=== PATIENT | female | born 1990 | race Caucasian/White ===

== ENCOUNTER 2016-08-26 20:51 | Emergency (ER) | payer SELFPAY ==
[~2016-08-26] VITALS: Ht 152.4 cm; Wt 61.2 kg
[~2016-08-26 20:51] MED LIST: ALPR1TAB7 PO
[2016-08-26 20:55] VITALS: BP 121/75
[2016-08-26 21:24] LABS: Basophils # (auto) 0.1 uL; Basophils % (auto) 0.6 % (0.0-2.0); Eosinophils # (auto) 0.1 uL; Eosinophils % (auto) 0.6 % (0.0-7.0); Hematocrit 38.4 % (36.0-46.0); Lymphocytes # (auto) 1.2 uL; Lymphocytes % (auto) 13.3 % (10.0-50.0); Mean Corpuscular Hemoglobin 29.5 pg (28.0-32.0); Mean Corpuscular Hgb Conc. 33.9 g/dL (32.0-36.0); Mean Platelet Volume 9.4 fL (7.4-10.4); Monocytes # (auto) 0.5 uL; Monocytes % (auto) 5.2 % (0.0-12.0); Neutrophils # (auto) 7.3 uL; Neutrophils % (auto) 80.3 % (37.0-80.0); Platelet Count (auto) 203 10^3/uL (140-450); Red Cell Distribution Width 13.7 % (11.6-16.0); White Blood Cell 9.1 10^3/uL (4.4-10.8)
[2016-08-26 21:42] LABS: Albumin 3.9 g/dL (3.4-5.0); Anion Gap 9 (5-15); BUN/Creatinine Ratio 5.3; Blood Urea Nitrogen 4 mg/dL (7-18); Calcium 8.8 mg/dL (8.5-10.1); Carbon Dioxide 26 mmol/L (21-32); Chloride 105 mmol/L (98-107); GFR African American 118 mL/min; GFR Non-African American 98 mL/min; Glucose 107 mg/dL (74-106); Potassium 3.7 mmol/L (3.5-5.1); Sodium 140 mmol/L (136-145)
[2016-08-26 21:43] LABS: INR 1.01 (0.9-1.15); Partial Thromboplastin Time 28.9 sec (22.64-33.71); Prothrombin Time 10.4 sec (9.37-12.3)
[2016-08-26 21:58] LABS: B-Type Natriuretic Peptide 8.09 pg/mL (0-100)
[2016-08-26 22:09] LABS: Alkaline Phosphatase 78 U/L (45-117); Aspartate Aminotransferase 11 U/L (15-37); Bilirubin, Total 0.4 mg/dL (0.2-1.0)
== END 2016-08-27 02:28 | disposition left against medical advice (07) ==
LOC: ER 20:59
DX: R07.9 Chest pain, unspecified (principal); R05 Cough; Z53.21 Procedure and treatment not carried out due to patient leaving prior to being seen by health care provider
CPT/HCPCS: 36415; 71010; 80053; 83735; 83880; 84484; 85025; 85610; 85730; 93005

== ENCOUNTER 2017-06-27 05:31 | Emergency (ER) | payer SELFPAY ==
[~2017-06-27] VITALS: Ht 154.9 cm; Wt 68.0 kg
[2017-06-27] MEDS ORDERED: ACETAMINOPHEN 500 MG TAB PO ONE ×2 (05:37→05:45)
[2017-06-27 05:43] VITALS: BP 115/77
== END 2017-06-27 06:20 | disposition left against medical advice (07) ==
LOC: ER 05:32
DX: R50.9 Fever, unspecified (principal); R05 Cough; Z53.21 Procedure and treatment not carried out due to patient leaving prior to being seen by health care provider

== ENCOUNTER 2017-11-18 19:54 | Emergency (ER) | payer SELFPAY ==
[~2017-11-18] VITALS: Ht 152.4 cm; Wt 65.8 kg
[2017-11-18 21:42] VITALS: BP 134/81
== END 2017-11-18 22:39 | disposition home or self-care (01) ==
LOC: ER 19:54
DX: S90.31XA Contusion of right foot, initial encounter (principal); L03.031 Cellulitis of right toe; Z88.0 Allergy status to penicillin; X58.XXXA Exposure to other specified factors, initial encounter; Y93.89 Activity, other specified; Y99.8 Other external cause status; Y92.89 Other specified places as the place of occurrence of the external cause
CPT/HCPCS: 29515; 73630; 81025

== ENCOUNTER 2017-12-06 22:51 | Emergency (ER) | payer SELFPAY ==
[~2017-12-06] VITALS: Ht 162.6 cm; Wt 65.8 kg
[2017-12-06 23:15] VITALS: BP 138/93
[2017-12-07] MEDS ORDERED: cefTRIAXone SOD 1,000 MG VL IM ONE (02:15)
[2017-12-07] MEDS ORDERED: LIDOCAINE 1% HCL (LOCAL ANESTH.) INJ 20ML MDV ONE (02:23)
== END 2017-12-07 03:09 | disposition home or self-care (01) ==
LOC: ER 22:51
DX: S90.414A Abrasion, right lesser toe(s), initial encounter (principal); Z88.0 Allergy status to penicillin; X58.XXXA Exposure to other specified factors, initial encounter; Y93.89 Activity, other specified; Y99.8 Other external cause status; Y92.89 Other specified places as the place of occurrence of the external cause
CPT/HCPCS: 73630; 96372; 99284; J0696; J2001

== ENCOUNTER 2018-12-23 10:15 | Emergency (ER) | payer SELFPAY ==
[~2018-12-23] VITALS: Ht 154.9 cm; Wt 69.4 kg
[2018-12-23 10:22] VITALS: BP 117/82
== END 2018-12-23 11:47 | disposition home or self-care (01) ==
LOC: ER 10:18
DX: F41.9 Anxiety disorder, unspecified (principal); F17.210 Nicotine dependence, cigarettes, uncomplicated; Z76.0 Encounter for issue of repeat prescription

== ENCOUNTER 2019-02-15 21:07 | Emergency (ER) | payer SELFPAY ==
[~2019-02-15] VITALS: Ht 154.9 cm; Wt 68.0 kg
[2019-02-15 21:22] VITALS: BP 138/96
== END 2019-02-15 22:16 | disposition home or self-care (01) ==
LOC: ER 21:09
DX: F41.0 Panic disorder [episodic paroxysmal anxiety] (principal); F17.210 Nicotine dependence, cigarettes, uncomplicated; Z88.0 Allergy status to penicillin; Z76.0 Encounter for issue of repeat prescription

== ENCOUNTER 2019-04-02 23:16 | Emergency (ER) | payer SELFPAY ==
[~2019-04-02] VITALS: Ht 154.9 cm; Wt 65.8 kg
[2019-04-03] MEDS ORDERED: ACETAMINOPHEN/CODEINE#3 (300/30mg) TAB PO ONE (01:30)
[2019-04-03] MEDS ORDERED: cefTRIAXone SOD 1,000 MG VL IM ONE (01:30)
[2019-04-03] MEDS ORDERED: DexAMETHasone SOD PHOS 10MG/1ML VIAL INJ IM ONE (01:30)
[2019-04-03 01:47] VITALS: BP 124/92
== END 2019-04-03 02:18 | disposition home or self-care (01) ==
LOC: ER 23:24
DX: J40 Bronchitis, not specified as acute or chronic (principal); M94.0 Chondrocostal junction syndrome [Tietze]; H69.83 Other specified disorders of Eustachian tube, bilateral
CPT/HCPCS: 71101; 96372; 99283; J0696; J1100

== ENCOUNTER 2019-08-01 21:03 | Emergency (ER) | payer SELFPAY ==
[~2019-08-01] VITALS: Ht 162.6 cm; Wt 61.2 kg
[2019-08-02 02:02] VITALS: BP 119/71
== END 2019-08-02 02:11 | disposition home or self-care (01) ==
LOC: ER 21:04
DX: S93.401A Sprain of unspecified ligament of right ankle, initial encounter (principal); Z88.0 Allergy status to penicillin; Z88.8 Allergy status to other drugs, medicaments and biological substances; W19.XXXA Unspecified fall, initial encounter; Y93.89 Activity, other specified; Y99.8 Other external cause status; Y92.89 Other specified places as the place of occurrence of the external cause
CPT/HCPCS: 73610

== ENCOUNTER 2019-11-28 21:01 | Emergency (ER) | payer SELFPAY ==
[~2019-11-28] VITALS: Ht 154.9 cm; Wt 65.8 kg
[2019-11-28 21:58] VITALS: BP 123/83
[2019-11-28 22:08] LABS: Basophils # (auto) 0 10 ^3/uL (0-0.2); Basophils % (auto) 0.6 % (0.0-2.0); Eosinophils # (auto) 0.1 10 ^3/uL (0-0.8); Eosinophils % (auto) 1.7 % (0.0-7.0); Hematocrit 36.6 % (36.0-46.0); Hemoglobin 12.5 g/dL (12.2-16.2); Lymphocytes # (auto) 2.1 10 ^3/uL (0.4-5.4); Mean Corpuscular Hemoglobin 29.8 pg (28.0-32.0); Mean Corpuscular Hgb Conc. 34.2 g/dL (32.0-36.0); Mean Corpuscular Volume 87.3 fL (80.0-100.0); Monocytes # (auto) 0.4 10 ^3/uL (0-1.3); Monocytes % (auto) 6.4 % (0.0-12.0); Neutrophils # (auto) 4.2 10 ^3/uL (1.6-8.6); Neutrophils % (auto) 60.3 % (37.0-80.0); Nucleated Red Blood Cells % 0.1 %; Platelet Count (auto) 202 10^3/uL (140-450); Red Blood Cells 4.19 10^6/uL (4.0-5.20); Red Cell Distribution Width 13.1 % (11.8-14.3); White Blood Cell 6.9 10^3/uL (4.4-10.8)
[2019-11-28] MEDS ORDERED: KETOROLAC TROMETH 60MG/2ML VIAL IM ONE (22:15)
[2019-11-28 22:27] LABS: Calcium 8.5 mg/dL (8.5-10.1); Potassium 3.6 mmol/L (3.5-5.1)
[2019-11-28 22:30] LABS: Urine Bacteria NONE SEEN /hpf (None Seen); Urine Blood 2+ /uL (Negative); Urine Mucus FEW (None Seen); Urine WBC 2 /hpf (0 - 5)
[2019-11-28 22:31] LABS: Albumin 3.5 g/dL (3.4-5.0); BUN/Creatinine Ratio 15.2
[2019-11-28 22:33] LABS: Bilirubin, Total 0.4 mg/dL (0.2-1.0); Total Protein 7.3 g/dL (6.4-8.2)
[2019-11-28 22:40] LABS: Alcohol, Urine < 3.0 mg/dL (0-10); Amphetamine Screen, Urine NEGATIVE (NEGATIVE); Barbiturate Scree,Urine NEGATIVE (NEGATIVE); Benzodiazephine Screen, Urine NEGATIVE (NEGATIVE); Cannabinoid Screen, Urine NEGATIVE (NEGATIVE); Cocaine Screen, Urine NEGATIVE (NEGATIVE); Opiate Scree,Urine NEGATIVE (NEGATIVE); Phencyclidine Screen, Urine NEGATIVE (NEGATIVE)
[2019-11-28] MEDS ORDERED: methylPREDNISolone SOD SUCC 125 MG/2 ML VL IM ONE (22:45)
== END 2019-11-28 23:19 | disposition home or self-care (01) ==
LOC: ER 21:01
DX: M26.622 Arthralgia of left temporomandibular joint (principal); H92.02 Otalgia, left ear; N39.0 Urinary tract infection, site not specified; F17.210 Nicotine dependence, cigarettes, uncomplicated
CPT/HCPCS: 36415; 70450; 70486; 80053; 80307; 81001; 81025; 85025; 96372; 99285; J1885; J2930

== ENCOUNTER 2019-12-10 19:51 | Emergency (ER) | payer SELFPAY ==
[~2019-12-10] VITALS: Ht 154.9 cm; Wt 74.4 kg
[2019-12-10 22:30] LABS: Urine Bacteria NONE SEEN /hpf (None Seen); Urine Blood Negative /uL (Negative); Urine Mucus FEW (None Seen); Urine Specific Gravity 1.032 (1.001-1.035); Urine WBC 2 /hpf (0 - 5)
[2019-12-10] MEDS ORDERED: LORazepam 0.5 MG TAB PO ONE (22:45)
[2019-12-10 23:12] LABS: Basophils # (auto) 0 10 ^3/uL (0-0.2); Basophils % (auto) 0.4 % (0.0-2.0); Eosinophils # (auto) 0.1 10 ^3/uL (0-0.8); Eosinophils % (auto) 1.6 % (0.0-7.0); Hematocrit 37.6 % (36.0-46.0); Hemoglobin 12.6 g/dL (12.2-16.2); Lymphocytes # (auto) 2.5 10 ^3/uL (0.4-5.4); Mean Corpuscular Hemoglobin 29.4 pg (28.0-32.0); Mean Corpuscular Hgb Conc. 33.5 g/dL (32.0-36.0); Mean Corpuscular Volume 87.6 fL (80.0-100.0); Monocytes # (auto) 0.6 10 ^3/uL (0-1.3); Monocytes % (auto) 7.1 % (0.0-12.0); Neutrophils # (auto) 4.8 10 ^3/uL (1.6-8.6); Neutrophils % (auto) 59.9 % (37.0-80.0); Nucleated Red Blood Cells % 0.1 %; Platelet Count (auto) 179 10^3/uL (140-450); Red Cell Distribution Width 13.2 % (11.8-14.3)
[2019-12-10 23:27] LABS: INR 0.92 (0.9-1.15); Partial Thromboplastin Time 25.4 sec (23.64-32.05)
[2019-12-10 23:30] LABS: Albumin 3.3 g/dL (3.4-5.0); Calcium 8.2 mg/dL (8.5-10.1); Potassium 3.1 mmol/L (3.5-5.1)
[2019-12-10] MEDS ORDERED: PHENYLEPHRINE HCL 0.5 % NASAL SPRAY 15ML ONE (23:30)
[2019-12-10] MEDS ORDERED: HYDROcodone-ACET 7.5/325MG TAB PO ONE (23:30)
[2019-12-10] MEDS ORDERED: PHENYLEPHRINE HCL 1 % NASAL SPRAY 15ML ONE (23:30)
[2019-12-10 23:32] LABS: BUN/Creatinine Ratio 11.1
[2019-12-10 23:35] LABS: Bilirubin, Total 0.2 mg/dL (0.2-1.0); Total Protein 7.2 g/dL (6.4-8.2)
[2019-12-10] MEDS ORDERED: SALINE 0.65 % NASAL SPRAY 45ML BOTTLE EACHNOSTRI ONE (23:45)
[2019-12-11 01:18] VITALS: BP 114/76
== END 2019-12-11 01:25 | disposition home or self-care (01) ==
LOC: ER 19:52
DX: R04.0 Epistaxis (principal); M26.622 Arthralgia of left temporomandibular joint; F17.210 Nicotine dependence, cigarettes, uncomplicated; Z88.0 Allergy status to penicillin
CPT/HCPCS: 36415; 80053; 81001; 85025; 85610; 85730

== ENCOUNTER → 2019-12-13 | Emergency (ER) | payer SELFPAY ==
[~2019-12-13] VITALS: Ht 165.1 cm; Wt 68.0 kg
[2019-12-13 21:29] LABS: Urine Bacteria NONE SEEN /hpf (None Seen); Urine Blood Negative /uL (Negative); Urine Mucus FEW (None Seen); Urine Specific Gravity 1.026 (1.001-1.035); Urine WBC 2 /hpf (0 - 5)
[2019-12-13 21:35] LABS: Basophils # (auto) 0 10 ^3/uL (0-0.2); Basophils % (auto) 0.4 % (0.0-2.0); Eosinophils # (auto) 0.1 10 ^3/uL (0-0.8); Hematocrit 34.8 % (36.0-46.0); Lymphocytes # (auto) 1.9 10 ^3/uL (0.4-5.4); Lymphocytes % (auto) 32.5 % (10.0-50.0); Mean Corpuscular Hemoglobin 29.8 pg (28.0-32.0); Mean Corpuscular Hgb Conc. 34.4 g/dL (32.0-36.0); Mean Corpuscular Volume 86.6 fL (80.0-100.0); Monocytes # (auto) 0.4 10 ^3/uL (0-1.3); Monocytes % (auto) 7.7 % (0.0-12.0); Neutrophils # (auto) 3.3 10 ^3/uL (1.6-8.6); Neutrophils % (auto) 57.4 % (37.0-80.0); Nucleated Red Blood Cells % 0.2 %; Platelet Count (auto) 168 10^3/uL (140-450); Red Blood Cells 4.02 10^6/uL (4.0-5.20); Red Cell Distribution Width 13.1 % (11.8-14.3); White Blood Cell 5.8 10^3/uL (4.4-10.8)
[2019-12-13 21:50] LABS: INR 0.94 (0.9-1.15); Partial Thromboplastin Time 25.7 sec (23.64-32.05)
[2019-12-13 21:58] LABS: BUN/Creatinine Ratio 15.6; Potassium 3.8 mmol/L (3.5-5.1)
[2019-12-13 21:59] LABS: Albumin 3.1 g/dL (3.4-5.0); Calcium 8.4 mg/dL (8.5-10.1)
[2019-12-13 22:01] LABS: Bilirubin, Total 0.3 mg/dL (0.2-1.0); Total Protein 6.9 g/dL (6.4-8.2)
[2019-12-13 22:55] VITALS: BP 118/72
== END | disposition home or self-care (01) ==
LOC: ER 20:36
DX: N93.9 Abnormal uterine and vaginal bleeding, unspecified (principal); K59.00 Constipation, unspecified; F17.210 Nicotine dependence, cigarettes, uncomplicated; F41.9 Anxiety disorder, unspecified; Z88.0 Allergy status to penicillin
CPT/HCPCS: 36415; 74176; 80053; 81001; 84702; 85025; 85610; 85730; 86850; 86900; 86901

== ENCOUNTER 2019-12-26 22:26 | Emergency (ER) | payer SELFPAY ==
[~2019-12-26] VITALS: Ht 180.3 cm; Wt 70.3 kg
[2019-12-26 22:48] VITALS: BP 120/83
== END 2019-12-27 00:52 | disposition home or self-care (01) ==
LOC: ER 22:26
DX: S63.501A Unspecified sprain of right wrist, initial encounter (principal); Z88.0 Allergy status to penicillin; W19.XXXA Unspecified fall, initial encounter; Y93.89 Activity, other specified; Y92.89 Other specified places as the place of occurrence of the external cause; Y99.8 Other external cause status
CPT/HCPCS: 73130

== ENCOUNTER 2020-01-10 22:23 | Emergency (ER) | payer SELFPAY ==
[~2020-01-10] VITALS: Ht 154.9 cm; Wt 71.7 kg
[2020-01-10 23:38] VITALS: BP 104/75
== END 2020-01-11 01:15 | disposition left against medical advice (07) ==
LOC: ER 22:23
DX: F41.9 Anxiety disorder, unspecified (principal); Z53.21 Procedure and treatment not carried out due to patient leaving prior to being seen by health care provider

== ENCOUNTER 2020-01-11 20:48 | Emergency (ER) | payer MEDICAID ==
[~2020-01-11] VITALS: Ht 154.9 cm; Wt 68.0 kg
[2020-01-12 01:02] VITALS: BP 114/80
== END 2020-01-12 01:17 | disposition home or self-care (01) ==
LOC: ER 20:49
DX: H92.02 Otalgia, left ear (principal); M79.89 Other specified soft tissue disorders; F41.9 Anxiety disorder, unspecified; N83.209 Unspecified ovarian cyst, unspecified side; Z88.0 Allergy status to penicillin; Z88.8 Allergy status to other drugs, medicaments and biological substances

== ENCOUNTER 2020-01-21 20:43 | Emergency (ER) | payer MEDICAID ==
[~2020-01-21] VITALS: Ht 154.9 cm; Wt 72.6 kg
[2020-01-21] MEDS ORDERED: TORSEMIDE 20 MG TAB PO ONE (23:45)
[2020-01-22] MEDS ORDERED: ACETAMINOPHEN 325 MG TAB PO ONE (00:45)
[2020-01-22 01:06] VITALS: BP 134/68
== END 2020-01-22 01:57 | disposition home or self-care (01) ==
LOC: ER 20:43
DX: G89.29 Other chronic pain (principal); H92.03 Otalgia, bilateral; F41.9 Anxiety disorder, unspecified; G43.109 Migraine with aura, not intractable, without status migrainosus; M26.629 Arthralgia of temporomandibular joint, unspecified side; F17.210 Nicotine dependence, cigarettes, uncomplicated; Z88.0 Allergy status to penicillin; Z88.8 Allergy status to other drugs, medicaments and biological substances

== ENCOUNTER 2020-02-22 19:36 | Emergency (ER) | payer MEDICAID ==
[~2020-02-22] VITALS: Ht 154.9 cm; Wt 72.6 kg
[2020-02-22 20:40] LABS: Basophils # (auto) 0 10 ^3/uL (0-0.2); Basophils % (auto) 0.6 % (0.0-2.0); Eosinophils # (auto) 0.1 10 ^3/uL (0-0.8); Eosinophils % (auto) 1.7 % (0.0-7.0); Hematocrit 38.9 % (36.0-46.0); Lymphocytes % (auto) 26.8 % (10.0-50.0); Mean Corpuscular Hemoglobin 29.4 pg (28.0-32.0); Mean Corpuscular Hgb Conc. 33.4 g/dL (32.0-36.0); Mean Corpuscular Volume 88.1 fL (80.0-100.0); Monocytes # (auto) 0.4 10 ^3/uL (0-1.3); Monocytes % (auto) 5.4 % (0.0-12.0); Neutrophils % (auto) 65.5 % (37.0-80.0); Nucleated Red Blood Cells % 0.2 %; Platelet Count (auto) 232 10^3/uL (140-450); Red Blood Cells 4.41 10^6/uL (4.0-5.20); Red Cell Distribution Width 13.7 % (11.8-14.3); White Blood Cell 7.6 10^3/uL (4.4-10.8)
[2020-02-22 20:49] LABS: Urine Bacteria NONE SEEN /hpf (None Seen); Urine Blood Negative /uL (Negative); Urine Mucus FEW (None Seen); Urine Specific Gravity 1.019 (1.001-1.035); Urine WBC 3 /hpf (0 - 5)
[2020-02-22 20:58] LABS: Albumin 3.9 g/dL (3.4-5.0); Calcium 9.1 mg/dL (8.5-10.1); Potassium 3.4 mmol/L (3.5-5.1)
[2020-02-22 21:01] LABS: Bilirubin, Total 0.2 mg/dL (0.2-1.0); Total Protein 7.8 g/dL (6.4-8.2)
[2020-02-23 00:17] VITALS: BP 118/87
== END 2020-02-23 00:16 | disposition home or self-care (01) ==
LOC: ER 19:36
DX: K59.00 Constipation, unspecified (principal); F17.210 Nicotine dependence, cigarettes, uncomplicated; F41.9 Anxiety disorder, unspecified; Z88.0 Allergy status to penicillin
CPT/HCPCS: 36415; 74176; 80053; 81001; 85025

== ENCOUNTER 2020-05-02 20:42 | Emergency (ER) | payer MEDICAID ==
[~2020-05-02] VITALS: Ht 154.9 cm; Wt 68.0 kg
[2020-05-02 21:30] VITALS: BP 135/84
== END 2020-05-03 03:27 | disposition left against medical advice (07) ==
LOC: ER 20:42
DX: J32.9 Chronic sinusitis, unspecified (principal); Z53.21 Procedure and treatment not carried out due to patient leaving prior to being seen by health care provider

== ENCOUNTER 2020-08-19 19:20 | Emergency (ER) | payer SELFPAY ==
[~2020-08-19] VITALS: Ht 152.4 cm; Wt 68.9 kg
[2020-08-19 20:35] VITALS: BP 117/83
[2020-08-19] MEDS ORDERED: KETOROLAC TROMETH 60MG/2ML VIAL IM ONE (22:15)
== END 2020-08-19 23:16 | disposition home or self-care (01) ==
LOC: ER 19:20
DX: S50.12XA Contusion of left forearm, initial encounter (principal); F17.210 Nicotine dependence, cigarettes, uncomplicated; Z88.0 Allergy status to penicillin; X58.XXXA Exposure to other specified factors, initial encounter; Y93.89 Activity, other specified; Y92.89 Other specified places as the place of occurrence of the external cause; Y99.8 Other external cause status
CPT/HCPCS: 73090; 96372; 99283; J1885

== ENCOUNTER 2020-10-08 17:45 | Emergency (ER) | payer MEDICAID ==
[~2020-10-08] VITALS: Ht 154.9 cm; Wt 68.0 kg
[2020-10-08 17:49] VITALS: BP 133/77
== END 2020-10-08 19:35 | disposition home or self-care (01) ==
LOC: ER 17:46
DX: F41.9 Anxiety disorder, unspecified (principal); F32.9 Major depressive disorder, single episode, unspecified; F17.210 Nicotine dependence, cigarettes, uncomplicated; Z76.0 Encounter for issue of repeat prescription

== ENCOUNTER 2021-05-31 19:17 | Emergency (ER) | payer BC, OTHER ==
[~2021-05-31] VITALS: Ht 154.9 cm; Wt 65.8 kg
[2021-05-31 19:18] VITALS: BP 118/87
[2021-05-31] MEDS ORDERED: TETRACAINE HCL 0.5% OPTH(EYE) SOLN 4ML LEFTEYE ONE (22:00)
[2021-05-31] MEDS ORDERED: FLUORESCEIN SOD OPTH TEST STRIP LEFTEYE ONE (22:00)
[2021-05-31] MEDS ORDERED: ACETAMINOPHEN 500 MG TAB PO ONE (22:00)
[2021-05-31] MEDS ORDERED: IBUPROFEN 800 MG TAB PO ONE (22:00)
== END 2021-05-31 22:31 | disposition home or self-care (01) ==
LOC: ER 19:17
DX: S05.02XA Injury of conjunctiva and corneal abrasion without foreign body, left eye, initial encounter (principal); G43.909 Migraine, unspecified, not intractable, without status migrainosus; F17.210 Nicotine dependence, cigarettes, uncomplicated; X58.XXXA Exposure to other specified factors, initial encounter; Y93.89 Activity, other specified; Y92.89 Other specified places as the place of occurrence of the external cause; Y99.8 Other external cause status
CPT/HCPCS: 70450

== ENCOUNTER 2021-10-12 01:32 | Emergency (ER) | payer BC, OTHER ==
[~2021-10-12] VITALS: Ht 154.9 cm; Wt 64.4 kg
[2021-10-12 03:30] VITALS: BP 120/81
== END 2021-10-12 05:00 | disposition left against medical advice (07) ==
LOC: ER 01:32
DX: N64.52 Nipple discharge (principal); Z53.21 Procedure and treatment not carried out due to patient leaving prior to being seen by health care provider
CPT/HCPCS: 81025

== ENCOUNTER → 2022-05-29 12:59 | Emergency (ER) | payer BC, OTHER ==
[~2022-05-29 12:59] MED LIST changes: +ETOMIDATE (2MG/ML) 20ML VIAL IV ONE; +LIDOCAINE 2%HCL (LOCAL ANESTH.) INJ 10ml MDV ONE; +MIDAZOLAM HCL 5 MG/ML-1ML VIAL ONE; +SUCCINYLCHOLINE CHLORIDE 20 MG/ML 10ML VIAL IV ONE
== END | disposition left against medical advice (07) ==
LOC: ER 12:59
DX: H57.12 Ocular pain, left eye (principal); H92.01 Otalgia, right ear; F41.9 Anxiety disorder, unspecified; R51.9 Headache, unspecified; F17.210 Nicotine dependence, cigarettes, uncomplicated; Z79.899 Other long term (current) drug therapy; Z88.0 Allergy status to penicillin; Z88.7 Allergy status to serum and vaccine
CPT/HCPCS: J0330; J2250

== ENCOUNTER 2022-10-03 19:56 | Emergency (ER) | payer BC, OTHER ==
[~2022-10-03] VITALS: Ht 154.9 cm; Wt 72.1 kg
[~2022-10-03 19:56] MED LIST changes: -ETOMIDATE (2MG/ML) 20ML VIAL IV ONE; -LIDOCAINE 2%HCL (LOCAL ANESTH.) INJ 10ml MDV ONE; -MIDAZOLAM HCL 5 MG/ML-1ML VIAL ONE; -SUCCINYLCHOLINE CHLORIDE 20 MG/ML 10ML VIAL IV ONE
[2022-10-03 20:54] VITALS: BP 122/83
== END 2022-10-03 23:48 | disposition home or self-care (01) ==
LOC: ER 19:56
DX: M79.645 Pain in left finger(s) (principal); F41.9 Anxiety disorder, unspecified; F32.9 Major depressive disorder, single episode, unspecified; Z88.0 Allergy status to penicillin; Z88.7 Allergy status to serum and vaccine
CPT/HCPCS: 29130; 73130

== ENCOUNTER 2023-01-06 20:30 | Emergency (ER) | payer BC, OTHER ==
[~2023-01-06] VITALS: Ht 154.9 cm; Wt 65.9 kg
[2023-01-06] MEDS ORDERED: ACET500T58 PO (21:42)
[2023-01-06] MEDS ORDERED: CLIN300C70 PO (21:42)
[2023-01-06 22:01] VITALS: BP 122/77
== END 2023-01-06 22:11 | disposition home or self-care (01) ==
LOC: ER 20:30
DX: H66.91 Otitis media, unspecified, right ear (principal); H92.02 Otalgia, left ear; F41.9 Anxiety disorder, unspecified; F32.9 Major depressive disorder, single episode, unspecified; Z88.0 Allergy status to penicillin; Z88.7 Allergy status to serum and vaccine; Z79.899 Other long term (current) drug therapy

== ENCOUNTER 2023-02-17 20:29 | Emergency (ER) | payer BC, OTHER ==
[~2023-02-17] VITALS: Ht 154.9 cm; Wt 63.0 kg
[~2023-02-17 20:29] MED LIST changes: +ACET500T58 PO; +CLIN300C70 PO
[2023-02-18] MEDS ORDERED: OFL50TS OT (00:12)
[2023-02-18] MEDS ORDERED: MUPI2OIN2 EX (00:12)
[2023-02-18] MEDS ORDERED: CLIN300C70 PO (00:12)
[2023-02-18] MEDS ORDERED: NEOMYCIN-BACITRACIN-POLYM UNITDOSE PKG TOP OINT TOP ONE (00:15)
[2023-02-18] MEDS ORDERED: CLINDAMYCIN HCL 150 MG CAP PO ONE (00:15)
[2023-02-18 02:59] VITALS: BP 113/79; PULSE 66; RESP 16; TEMP 98.9; O2SAT 100
== END 2023-02-18 02:59 | disposition home or self-care (01) ==
LOC: ER 20:29
DX: S50.812A Abrasion of left forearm, initial encounter (principal); H66.93 Otitis media, unspecified, bilateral; F41.9 Anxiety disorder, unspecified; F32.9 Major depressive disorder, single episode, unspecified; Z98.890 Other specified postprocedural states; Z88.0 Allergy status to penicillin; Z88.7 Allergy status to serum and vaccine; Z79.1 Long term (current) use of non-steroidal anti-inflammatories (NSAID); Z79.899 Other long term (current) drug therapy; W01.0XXA Fall on same level from slipping, tripping and stumbling without subsequent striking against object, initial encounter; Y93.89 Activity, other specified; Y92.89 Other specified places as the place of occurrence of the external cause; Y99.8 Other external cause status

== ENCOUNTER 2023-06-03 07:36 | Emergency (ER) | payer BC, OTHER ==
[~2023-06-03] VITALS: Ht 157.5 cm; Wt 77.6 kg
[~2023-06-03 07:36] MED LIST changes: +MUPI2OIN2 EX; +OFL50TS OT
[2023-06-03 09:15] VITALS: BP 119/80; PULSE 80; RESP 16; TEMP 97.9; O2SAT 98
[2023-06-03] MEDS ORDERED: DOXY-286 PO (09:32)
== END 2023-06-03 09:32 | disposition home or self-care (01) ==
LOC: ER 07:36
DX: J06.9 Acute upper respiratory infection, unspecified (principal); F41.9 Anxiety disorder, unspecified; F32.9 Major depressive disorder, single episode, unspecified; Z88.8 Allergy status to other drugs, medicaments and biological substances; Z79.899 Other long term (current) drug therapy
CPT/HCPCS: 71045

== ENCOUNTER 2023-06-23 16:41 | Emergency (ER) | payer BC, OTHER ==
[~2023-06-23] VITALS: Ht 154.9 cm; Wt 77.5 kg
[~2023-06-23 16:41] MED LIST changes: +DOXY-286 PO
[2023-06-23 17:15] LABS: Basophils # (auto) 0 10 ^3/uL (0-0.2); Basophils % (auto) 0.5 % (0.0-2.0); Eosinophils # (auto) 0.2 10 ^3/uL (0-0.8); Eosinophils % (auto) 2.2 % (0.0-7.0); Hematocrit 38.2 % (36.0-46.0); Mean Corpuscular Hemoglobin 29.5 pg (28.0-32.0); Mean Corpuscular Volume 86.7 fL (80.0-100.0); Monocytes # (auto) 0.4 10 ^3/uL (0-1.3); Monocytes % (auto) 5.7 % (0.0-12.0); Neutrophils # (auto) 4.9 10 ^3/uL (1.6-8.6); Neutrophils % (auto) 64.6 % (37.0-80.0); Nucleated Red Blood Cells % 0.1 %; Red Blood Cells 4.41 10^6/uL (4.0-5.20); Red Cell Distribution Width 13.9 % (11.8-14.3); White Blood Cell 7.5 10^3/uL (4.4-10.8)
[2023-06-23 17:31] LABS: Alanine Aminotransferase 45 U/L (7-40); Albumin 4.6 g/dL (3.2-4.8); Alkaline Phosphatase 86 U/L (46-116); Anion Gap 11 (5-15); Aspartate Aminotransferase 29 U/L (13-40); BUN/Creatinine Ratio 9.1 (10.0-20.0); Blood Urea Nitrogen 7 mg/dL (9-23); Calcium 9.3 mg/dL (8.5-10.1); Carbon Dioxide 22 mmol/L (20-30); Chloride 104 mmol/L (98-107); Glucose 136 mg/dL (74-106); Potassium 3.5 mmol/L (3.5-5.1); Sodium 137 mmol/L (136-145)
[2023-06-23 17:32] LABS: Bilirubin, Total 0.9 mg/dL (0.2-1.0); Total Protein 7.4 g/dL (5.7-8.2)
[2023-06-23 17:39] LABS: INR 1.01 (0.9-1.15); Partial Thromboplastin Time 30.8 SEC (24.5-34.5); Prothrombin Time 10.6 sec (9.3-11.8)
[2023-06-23 17:49] LABS: Urine Bacteria NONE SEEN /hpf (None Seen); Urine Blood TRACE /uL (Negative); Urine Clarity Clear (Clear); Urine Color Colorless (Yellow); Urine Protein, UAD Negative (Negative); Urine Specific Gravity 1.006 (1.001-1.035); Urine Urobilinogen Normal (Negative); Urine WBC <1 /hpf (0 - 5)
[2023-06-23 17:54] LABS: Amphetamine Screen, Urine Neg (NEGATIVE); Barbiturate Scree,Urine Neg (NEGATIVE); Benzodiazephine Screen, Urine Neg (NEGATIVE); Cannabinoid Screen, Urine Neg (NEGATIVE); Opiate Scree,Urine Neg (NEGATIVE); Phencyclidine Screen, Urine Neg (NEGATIVE)
[2023-06-23] MEDS ORDERED: IOHEXOL 350 MG/ML 100ML IJ ONE (18:58)
[2023-06-23 19:14] LABS: Cocaine Screen, Urine Neg (NEGATIVE)
[2023-06-23 20:00] VITALS: O2SAT 95
[2023-06-23 22:00] VITALS: TEMP 98.4
[2023-06-23] MEDS ORDERED: BENAZEPRIL HCL 10 MG TAB PO ONE (22:30)
[2023-06-24] VITALS: BP 102/72; PULSE 83; RESP 16; O2SAT 98
[2023-06-24] MEDS ORDERED: IOHEXOL 350 MG/ML 100ML IJ ONE (01:32)
== END 2023-06-24 00:52 | disposition home or self-care (01) ==
LOC: ER 16:41
DX: R53.1 Weakness (principal); R10.2 Pelvic and perineal pain; F41.9 Anxiety disorder, unspecified; F32.9 Major depressive disorder, single episode, unspecified; Z88.8 Allergy status to other drugs, medicaments and biological substances; Z79.899 Other long term (current) drug therapy; Z86.2 Personal history of diseases of the blood and blood-forming organs and certain disorders involving the immune mechanism
CPT/HCPCS: 36415; 70450; 70498; 70551; 80053; 80307; 81001; 82962; 84702; 85025; 85610; 85730; 93005; 99285; Q9967

== ENCOUNTER 2023-10-14 12:15 | Inpatient (IN) | payer BC, OTHER ==
[~2023-10-14] VITALS: Ht 165.1 cm; Wt 24.9 kg
[~2023-10-14 12:15] MED LIST changes: +CLIN1CAP70 PO; -CLIN300C70 PO
[2023-10-14 12:44] LABS: Basophils # (auto) 0 10 ^3/uL (0-0.2); Basophils % (auto) 0.4 % (0.0-2.0); Eosinophils # (auto) 0.1 10 ^3/uL (0-0.8); Eosinophils % (auto) 1.5 % (0.0-7.0); Hematocrit 39.6 % (36.0-46.0); Hemoglobin 13.6 g/dL (12.2-16.2); Lymphocytes # (auto) 1.6 10 ^3/uL (0.4-5.4); Lymphocytes % (auto) 21.6 % (10.0-50.0); Mean Corpuscular Hemoglobin 29.6 pg (28.0-32.0); Mean Corpuscular Hgb Conc. 34.3 g/dL (32.0-36.0); Mean Corpuscular Volume 86.4 fL (80.0-100.0); Monocytes # (auto) 0.3 10 ^3/uL (0-1.3); Monocytes % (auto) 4.4 % (0.0-12.0); Neutrophils # (auto) 5.5 10 ^3/uL (1.6-8.6); Neutrophils % (auto) 72.1 % (37.0-80.0); Nucleated Red Blood Cells % 0.1 %; Red Blood Cells 4.59 10^6/uL (4.0-5.20); Red Cell Distribution Width 14.2 % (11.8-14.3); White Blood Cell 7.6 10^3/uL (4.4-10.8)
[2023-10-14 12:58] LABS: INR 0.99 (0.9-1.15); Prothrombin Time 10.4 sec (9.3-11.8)
[2023-10-14 13:05] LABS: Alanine Aminotransferase 16 U/L (7-40); Albumin 4.7 g/dL (3.2-4.8); Alkaline Phosphatase 85 U/L (46-116); Anion Gap 5 (5-15); Aspartate Aminotransferase 14 U/L (13-40); BUN/Creatinine Ratio 10.8 (10.0-20.0); Blood Urea Nitrogen 8 mg/dL (9-23); Carbon Dioxide 24 mmol/L (20-30); Chloride 111 mmol/L (98-107); Glucose 97 mg/dL (74-106); Magnesium 1.9 mg/dL (1.6-2.6); Potassium 3.8 mmol/L (3.5-5.1); Sodium 140 mmol/L (136-145)
[2023-10-14 13:06] LABS: Bilirubin, Total 0.6 mg/dL (0.2-1.0); Total Protein 7.5 g/dL (5.7-8.2)
[2023-10-14] MEDS ORDERED: TOPI25TA84 PO (18:25)
[2023-10-14] MEDS ORDERED: GABA-1250 PO (18:25)
[2023-10-14] MEDS ORDERED: CITA-73 PO (18:25)
[2023-10-14] MEDS ORDERED: DOCUSATE SOD 100 MG CAP PO PRN (18:30)
[2023-10-14] MEDS ORDERED: ONDANSETRON HCL 4 MG/2 ML VIAL IV PRN (18:30)
[2023-10-14] MEDS ORDERED: MORPHINE SULFATE INJ 2 MG/ml SYRG IV PRN (18:30)
[2023-10-14] MEDS ORDERED: NITROGLYCERIN 0.4 MG SL TAB SL PRN (18:30)
[2023-10-14] MEDS ORDERED: ASPI-628 PO (18:31)
[2023-10-14] MEDS ORDERED: ATOR40TA52 PO (18:31)
[2023-10-14] MEDS: IOHEXOL 350 MG/ML 100ML IJ ONE (21:57)
[2023-10-14 22:05] VITALS: PULSE 69; RESP 20; O2SAT 99
[2023-10-14] MEDS: GABAPENTIN 300 MG CAP PO SCH (22:07)
[2023-10-14] MEDS: TOPIRAMATE 25 MG TAB PO SCH (22:07)
[2023-10-14] MEDS: HYDROcodone-ACET 10/325MG TAB PO PRN (22:12)
[2023-10-15 01:00] VITALS: BP_SYST 101; BP_SYST 130; BP_DIAS 51; BP_DIAS 91; PULSE 62; PULSE 65; RESP 14; RESP 16; TEMP 97.7; TEMP 98.3; O2SAT 96; O2SAT 99
[2023-10-15] MEDS: HYDROcodone-ACET 5/325MG TAB PO PRN (03:41)
[2023-10-15 05:00] VITALS: BP 98/56; PULSE 68; RESP 12; TEMP 98.4; O2SAT 98
[2023-10-15 06:02] LABS: Basophils # (auto) 0 10 ^3/uL (0-0.2); Basophils % (auto) 0.4 % (0.0-2.0); Eosinophils # (auto) 0.2 10 ^3/uL (0-0.8); Eosinophils % (auto) 2.3 % (0.0-7.0); Hemoglobin 12.2 g/dL (12.2-16.2); Lymphocytes # (auto) 2.4 10 ^3/uL (0.4-5.4); Lymphocytes % (auto) 29.5 % (10.0-50.0); Mean Corpuscular Hemoglobin 29.5 pg (28.0-32.0); Mean Corpuscular Volume 86.8 fL (80.0-100.0); Monocytes # (auto) 0.5 10 ^3/uL (0-1.3); Neutrophils % (auto) 61.8 % (37.0-80.0); Red Blood Cells 4.15 10^6/uL (4.0-5.20); Red Cell Distribution Width 13.7 % (11.8-14.3)
[2023-10-15 06:13] LABS: Alanine Aminotransferase 13 U/L (7-40); Albumin 4.3 g/dL (3.2-4.8); Alkaline Phosphatase 78 U/L (46-116); Anion Gap 8 (5-15); Aspartate Aminotransferase 12 U/L (13-40); BUN/Creatinine Ratio 11.6 (10.0-20.0); Blood Urea Nitrogen 8 mg/dL (9-23); Calcium 9.4 mg/dL (8.7-10.4); Carbon Dioxide 22 mmol/L (20-30); Chloride 107 mmol/L (98-107); Glucose 92 mg/dL (74-106); Potassium 3.6 mmol/L (3.5-5.1); Sodium 137 mmol/L (136-145)
[2023-10-15 06:14] LABS: Bilirubin, Total 0.8 mg/dL (0.2-1.0); Total Protein 6.8 g/dL (5.7-8.2)
[2023-10-15 08:00] VITALS: BP 112/71; PULSE 68; PULSE 82; RESP 16; TEMP 97.6; O2SAT 100
[2023-10-15] MEDS: ATORVASTATIN 20 MG TAB PO SCH (10:10)
[2023-10-15] MEDS: ASPirin-EC 81 mg tab PO SCH (10:11)
[2023-10-15] MEDS: CITALOPRAM HYDROBR 20 MG TAB PO SCH (10:11)
[2023-10-15] MEDS: ENOXAPARIN SOD 40 MG/0.4 ML SYRINGE SC SCH (10:12)
[2023-10-15 12:00] VITALS: BP 110/78; PULSE 84; RESP 16; TEMP 98.3; O2SAT 97
[2023-10-15] MEDS: ACETAMINOPHEN 325 MG TAB PO PRN (12:34)
[2023-10-15] MEDS ORDERED: IBUPROFEN 600 MG TAB PO PRN (14:00)
== END 2023-10-15 16:10 | disposition home or self-care (01) | DRG 69 ==
LOC: ER 12:15 → TELE 18:25 → TELE-WESTW 23:53
PROVIDERS: ADMIT Internal Medicine; ATTEND Emergency Medicine
DX: G45.9 Transient cerebral ischemic attack, unspecified (principal); I69.351 Hemiplegia and hemiparesis following cerebral infarction affecting right dominant side; F32.A Depression, unspecified; F41.9 Anxiety disorder, unspecified; F17.200 Nicotine dependence, unspecified, uncomplicated; G43.409 Hemiplegic migraine, not intractable, without status migrainosus; Z88.0 Allergy status to penicillin; Z82.49 Family history of ischemic heart disease and other diseases of the circulatory system; Z83.3 Family history of diabetes mellitus; Z79.899 Other long term (current) drug therapy
CPT/HCPCS: 36415; 70450; 70496; 70551; 71045; 80053; 83735; 83880; 84484; 85025; 85610; 85730; 93005; 97163; G0378

== ENCOUNTER 2023-11-01 15:27 | Emergency (ER) | payer BC, OTHER ==
[~2023-11-01] VITALS: Ht 154.9 cm; Wt 79.9 kg
[~2023-11-01 15:27] MED LIST changes: +ASPI-628 PO; +ATOR40TA52 PO; +CITA-73 PO; +GABA-1250 PO; +TOPI25TA84 PO
[2023-11-01 16:37] VITALS: BP 110/75; PULSE 90; RESP 16; TEMP 98.3; O2SAT 97
[2023-11-01] MEDS: IBUPROFEN 800 MG TAB PO ONE (16:57)
== END 2023-11-01 17:10 | disposition home or self-care (01) ==
LOC: ER 15:27
DX: S50.12XA Contusion of left forearm, initial encounter (principal); F41.9 Anxiety disorder, unspecified; F32.A Depression, unspecified; Z86.73 Personal history of transient ischemic attack (TIA), and cerebral infarction without residual deficits; Z91.014 Allergy to mammalian meats; Z88.0 Allergy status to penicillin; Z88.7 Allergy status to serum and vaccine; Z79.899 Other long term (current) drug therapy; Y04.0XXA Assault by unarmed brawl or fight, initial encounter; Y93.89 Activity, other specified; Y92.89 Other specified places as the place of occurrence of the external cause; Y99.8 Other external cause status
CPT/HCPCS: 73090

== ENCOUNTER 2024-08-24 06:11 | Emergency (ER) | payer OTHER ==
[~2024-08-24] VITALS: Ht 157.5 cm; Wt 79.1 kg
[2024-08-24 06:11] VITALS: TEMP 97.5
[2024-08-24 06:20] VITALS: BP 118/86; PULSE 82; RESP 18; O2SAT 98
--- NOTE | 2024-08-24 07:39 | ED.PDOC ---
Eye-HPI HPI Comments 33 year old presents for URI symptoms x 2 weeks. C/o sore throat, right ear pain and trouble breathing Tried OTC medication w/ no improvement Denies sick contacts. Chief Complaint: Sore Throat Time Seen by MD: 06:48 Primary Care Provider: Reviewed Notes: Nurses Notes, Medications, Allergies Allergies: Coded Allergies: Penicillins (Verified Allergy, Unknown, 02/15/19) Tetanus Toxoid (Verified Allergy, Unknown, 06/27/17) Home Meds Active Scripts Doxycycline Hyclate (DOXYCYCLINE HYCLATE) 100 Mg Tab, 1 TAB PO BID for 7 Days, #14 TAB 0 Refills Prov:REMI MCCURDY FILTER BED PLACER 06/03/23 Mupirocin (Pseudomonas Fluores (Mupirocin) 2 % Oin, 1 APPLIC EX TID for 10 Days, #15 MG apply to the affected area Prov:HANNAH BOWEN Q FILTER BED PLACER 02/18/23 Ofloxacin (Otic) (FLOXIN OTIC) [address], 5 DROP OT BID for 5 Days, #10 ML Prov:HANNAH BOWEN Q FILTER BED PLACER 02/18/23 Clindamycin Hcl (Clindamycin Hcl) 300 Mg Cap, 1 CAP PO QID for 10 Days, #40 CAP Prov:LILIAM BOWENA Q FILTER BED PLACER 02/18/23 Clindamycin Hcl (Clindamycin Hcl) 300 Mg Cap, 1 CAP PO TID for 7 Days, #21 CAP 0 Refills Prov:LATOYA RIVERA 01/06/23 Acetaminophen (Acetaminophen) 500 Mg Tab, 500 MG PO QIDP, #30 TAB 0 Refills Prov:LATOYA RIVERA 01/06/23 Reported Medications Atorvastatin Calcium (ATORVASTATIN CALCIUM) 40 Mg Tab, 1 TAB PO DAILY 10/14/23 Aspirin (Aspirin Adult Low Dose) 81 Mg Tab, 1 TAB PO DAILY 10/14/23 Gabapentin (Gabapentin) 300 Mg Cap, 1 CAP PO TID 10/14/23 Topiramate (Topiramate) 25 Mg Tab, 2 TAB PO BID 10/14/23 Citalopram Hydrobromide (Citalopram Hydrobromide) 40 Mg Tab, 1 TAB PO DAILY 10/14/23 Alprazolam (Alprazolam) 1 Mg Tab, 1 MG PO DAILY, TAB 07/09/15 Information Source: Patient Mode of Arrival: Ambulatory Past Medical History PAST MEDICAL HISTORY: Anxiety, Depression, TIA Surgical History: Denies all surgeries DOORS PREFITTER History: Endometriosis, Ovarian Cysts Family History Family History: Reviewed,noncontributory to illness, Unknown Social History Smoker: Non-Smoker Alcohol: Occasionally Drugs: Denies Drug Use Lives In: Home All Other Systems: Reviewed and Negative (Per HPI) Physical Exam General Appearance: No Apparent Distress, Normal HEENT: Normal ENT Inspection, Pharyngeal Erythema ( MMM), TMs Normal Neck: Full Range of Motion, Non-Tender, Normal, Normal Inspection Respiratory: Chest Non-Tender, Lungs Clear, No Accessory Muscle Use, No Respiratory Distress, Normal Breath Sounds Cardiovascular: No Edema, No JVD, No Murmur, No Gallop, Normal Peripheral Pulses, Regular Rate/Rhythm Breast Exam: Deferred Gastrointestinal: No Organomegaly, Non Tender, No Pulsatile Mass, Normal Bowel Sounds, Soft Genitalia: Deferred Pelvic: Deferred Rectal: Deferred Extremities: No calf tenderness, Normal capillary refill, Normal inspection, Normal range of motion, Non-tender, No pedal edema Musculoskeletal : Apperance: Normal 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 Was a procedure done?: No EENT DIFF Eye: Other Sore Throat: Viral Pharyngitis, URI X-Ray, Labs, Meds, VS Vital Signs Date Time Temp Pulse Resp B/P (MAP) Pulse Ox O2 Delivery O2 Flow Rate FiO2 08/24/24 06:20 97.5 82 18 118/86 (97) 98 08/24/24 06:11 82 18 98 Room Air 08/24/24 06:11 97.5 82 18 118/86 (97) 98 97.5 X-Ray, Labs, Meds, VS Comment Patient presents with a chief complaint of a sore throat. After review of systems and physical examination there are no no concerns or red flags for peritonsillar abscess, abscess formation, epiglottitis, retropharyngeal abscess formation or airway obstruction. No concerns for peritonsillar abscess as patient denies severe sore throat, muffled or hot potato voice, and difficulty handling secretions. No concerns for abscess formation as the soft palate is symmetrical and there is no displacement of the uvula and the uvula is also midline. No concerns for epiglottitis as patient denies severe sore throat, dysphagia, muffled voice, patient is not drooling nor is patient in tripod position. No signs of retropharyngeal abscess formation as patient has no fevers, stiff neck, drooling no stridor No signs of airway obstruction as patient denies sensation of foreign body vital signs stable on room air. Encouraged fluid intake Acetaminophen to reduce pain/fever NSAIDs to reduce pain/fever Nonpharmacological recommendations given Warm salt water gargles Throat lozenges Humidified air Patient is stable for discharge at this time. External notes reviewed. Test results and diagnostic imaging interpreted. All diagnostic findings, discharge care, education and instructions provided Follow-up with PCP in 2 to 3 days Patient verbalized understanding and agreed to treatment plan Vital signs stable, afebrile, no acute distress noted Patient ambulatory with strong steady gait Advised to return precautions for any new or worsening symptoms, return to ER immediately for re-evaluation Patient is aware that the purpose of this visit was for an acute medical emergency requiring emergent stabilization. Chronic conditions, including malignancies have not been ruled out. Patient is instructed to follow up with PCP as directed and discharge instructions for continued care and workup. If unable to arrange follow-up, patient is to return to the emergency department for reassessment. Patient (parent or legal guardian if applicable) was given verbal and written discharge instructions and acknowledges understanding. Time of 1ST Reevaluation: 07:41 Reevaluation 1ST: Improved Patient Education/Counseling: Diagnosis, Treatment Family Education/Counseling: Diagnosis, Treatment Departure 1 Departure Time of Disposition: 07:42 Impression: Primary Impression: Lymphadenitis Disposition: HOME / SELF CARE / HOMELESS Condition: Stable e-Prescriptions Acetaminophen (Acetaminophen) 500 Mg Tab 500 MG PO Q6HP PRN for 7 Days, #28 TAB 0 Refills Prov: REMI MCCURDY FILTER BED [employer]ACER 08/24/24 Prednisone (Prednisone) 20 Mg Tab 60 MG PO DAILY for 5 Days, #15 TAB 0 Refills Prov: REMI MCCURDY [employer]ED [employer]ACER 08/24/24 Azithromycin (Azithromycin) 250 Mg Tab 250 MG PO DAILY MDD 500 for 5 Days, #6 TAB 0 Refills 2 TABLETS ORALLY ON DAY ONE, THEN 1 TABLET ORALLY DAILY FOR 4 DAYS Prov: REMI MCCURDY NP 08/24/24 Discharged With: Self Critical Care Note Critical Care Time?: No Stability Stability form required: No Heart Score Heart Score: Heart Score Response (Comments) Value History N/A 0 EKG N/A 0 Age N/A 0 Risk Factors N/A 0 Troponin N/A 0 Total 0 REMI MCCURDY NP Aug 24, 2024 07:39
[2024-08-24] MEDS ORDERED: ACET500T58 PO (07:47)
[2024-08-24] MEDS ORDERED: AZIT-43 PO (07:47)
[2024-08-24] MEDS ORDERED: PRED20TA2 PO (07:47)
== END 2024-08-24 07:47 | disposition home or self-care (01) ==
LOC: ER 06:11
DX: I88.9 Nonspecific lymphadenitis, unspecified (principal); F41.9 Anxiety disorder, unspecified; F32.A Depression, unspecified; Z86.73 Personal history of transient ischemic attack (TIA), and cerebral infarction without residual deficits; Z88.7 Allergy status to serum and vaccine; Z88.0 Allergy status to penicillin; Z79.899 Other long term (current) drug therapy; Z79.82 Long term (current) use of aspirin

== ENCOUNTER 2025-05-21 14:31 | Emergency (ER) | payer BC, OTHER ==
[~2025-05-21] VITALS: Ht 154.9 cm; Wt 82.0 kg
[~2025-05-21 14:31] MED LIST changes: +AZIT-43 PO; +PRED20TA2 PO
--- NOTE | 2025-05-21 15:27 | ED.PDOC ---
SOB-HPI HPI Comments 34 y.o female presents to the ED for a chief complaint of hemoptysis associated with throat swelling and pain x 1 month. 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 She has not been able to establish a PCP given insurance issues. She denies any SOB, fever, chills, difficultly swallowing, or chest pain. 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 Family History Family History: Reviewed,noncontributory to illness, Unknown Social History Smoker: Non-Smoker Alcohol: Occasionally Drugs: Denies Drug Use Lives In: Home Constitutional: denies: chills, diaphoresis, fatigue, fever, malaise, sweats, weakness, others EENTM: reports: throat pain, throat swelling; denies: blurred vision, double vision, ear bleeding, ear discharge, ear drainage, ear pain, ear ringing, eye pain, eye redness, hearing loss, mouth pain, mouth swelling, nasal discharge, nose bleeding, nose congestion, nose pain, photophobia, tearing, voice changes, others Respiratory: reports: cough, hemoptysis; denies: orthopnea, SOB at rest, shortness of breath, SOB with excertion, stridor, wheezing, others Cardiovascular: denies: chest pain, dizzy spells, diaphoresis, Dyspnea on exertion, edema, irregular heart beat, left arm pain, lightheadedness, palpitations, PND, syncope, others Gastrointestinal: denies: abdomen distended, abdominal pain, blood streaked bowels, constipated, diarrhea, dysphagia, difficulty swallowing, hematemesis, melena, nausea, poor appetite, poor fluid intake, rectal bleeding, rectal pain, vomiting, others Genitourinary: denies: abnormal vagina bleeding, burning, dyspareunia, dysuria, flank pain, frequency, hematuria, incontinence, pain, , vagina discharge, urgency, others Neurological: denies: dizziness, fainting, headache, left sided numbness, left sided weakness, numbness, paresthesia, pre-existing deficit, right sided numbness, right sided weakness, seizure, speech problems, tingling, tremors, weakness, others Musculoskeletal: denies: back pain, gout, joint pain, joint swelling, muscle pain, muscle stiffness, neck pain, others Integumetry: denies: bruises, change in color, change in hair/nails, dryness, laceration, lesions, lumps, rash, wounds, others Allergic/Immunocompromised: denies: Difficulty Healing, Frequent Infections, Hives, Itching, others Hematologic/Lymphatic: denies: anemia, blood clots, easy bleeding, easy bruising, swollen glands, others Endocrine: denies: excessive hunger, excessive sweating, excessive thirst, excessive urination, flushing, intolerance to cold, intolerance to heat, unexplained weight gain, unexplained weight loss, others Psychiatric: denies: anxiety, bipolar disorder, depression, hopeless, panic disorder, schizophrenia, sleepless, suicidal, others All Other Systems: Reviewed and Negative Physical Exam General Appearance: Moderate Distress HEENT: Normal ENT Inspection, Pharynx Normal, TMs Normal Neck: Full Range of Motion, Non-Tender, Normal, Normal Inspection Respiratory: Chest Non-Tender, Lungs Clear, No Accessory Muscle Use, No Respiratory Distress, Normal Breath Sounds Cardiovascular: No Edema, No JVD, No Murmur, No Gallop, Normal Peripheral Pulses, Regular Rate/Rhythm Breast Exam: Deferred Gastrointestinal: No Organomegaly, Non Tender, No Pulsatile Mass, Normal Bowel Sounds, Soft Genitalia: Deferred Pelvic: Deferred Rectal: Deferred Extremities: No calf tenderness, Normal capillary refill, Normal inspection, Normal range of motion, Non-tender, No pedal edema Musculoskeletal : Apperance: Normal 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 Was a procedure done?: No Differential Dx Differential Diagnosis: Anxiety, Asthma, Bronchitis Comments Tuberculosis, Bronchiectasis, Pulmonary vascular diseases, High pulmonary venous pressure, Trauma injury of the vocal cords/ X-Ray, Labs, Meds, VS Vital Signs Date Time Temp Pulse Resp B/P (MAP) Pulse Ox O2 Delivery O2 Flow Rate FiO2 05/21/25 16:42 98.7 75 16 125/90 (102) 100 98.7 05/21/25 14:33 97.0 103 20 110/60 98 97.0 Patient alert. Came in because he was coughing up blood. Vitals stable. Answering questions. Lungs clear. Saturation pristine on room air. Respiratory rate within normal limits. No leg swelling. No shortness a breath. Was given prescription of Bactrim antibiotic. Explained to the patient. Was told to follow up with the ENT surgeon. Was told to follow up with her primary care physician. Was told to come back if there is any problem. Time of 1ST Reevaluation: 15:27 Reevaluation 1ST: Unchanged Patient Education/Counseling: Diagnosis, Treatment Family Education/Counseling: No Family Present SEPSIS Sepsis Screen Date sepsis recognized/suspect: May 21, 2025 Time Sepsis recognized/suspect: 1434 Recent Procedure: No On Antibiotic Therapy: No Respiratory Rate >20: No Heart Rate >90: Yes Temp<36 C (96.8 F) or >38.3 C: No SBP <90 or MAP <65 mmHG: No New Acute Mental Status Change: No Is the patient on CPAP, BIPAP,: No Physician Orders Chest Portable (05/21/25 15:14) Vital Signs Date Time Temp Pulse Resp B/P (MAP) Pulse Ox O2 Delivery O2 Flow Rate FiO2 05/21/25 16:42 98.7 75 16 125/90 (102) 100 98.7 05/21/25 14:33 97.0 103 20 110/60 98 97.0 Departure 1 Departure Time of Disposition: 16:38 Impression: Primary Impression: Pneumonitis Disposition: 01 HOME / SELF CARE / HOMELESS Condition: Good e-Prescriptions Cephalexin Monohydrate (Cephalexin) 500 Mg Cap 1 CAP PO QID for 7 Days, #28 CAP Prov: SEVERINO RODRIGUEZ MD 05/21/25 Discharged With: Self Critical Care Note Critical Care Time?: No Stability Stability form required: No I personally scribed for SEVERINO RODRIGUEZ MD ([email or web address]) on 05/21/25 at 15:27. Electronically submitted by Marcelina Askew ([facility]). SEVERINO RODRIGUEZ MD May 21, 2025 15:27
[2025-05-21] MEDS ORDERED: CEPH500C PO (16:40)
[2025-05-21 16:42] VITALS: BP 125/90; PULSE 75; TEMP 98.7
--- NOTE | 2025-05-21 17:22 | DVH ---
CHEST RADIOGRAPH Indication: cough Technique: Single frontal view of the chest was obtained Comparison: XY CHEST XRAY 1 VIEW on DOS: 10/14/23, XR CHEST 1 VIEW on DOS: 09/18/23, XR CHEST 1 VIEW on DOS: 09/01/23 FINDINGS: Lines and Tubes: None Lungs: No focal consolidation. Pleura: No effusion. No pneumothorax. Cardiomediastinal contours: Unremarkable Bones: No acute osseous abnormality. IMPRESSION: 1. No acute cardiopulmonary disease. 2. No significant change from 10/14 2023.
[2025-05-21 17:52] VITALS: RESP 20; O2SAT 98
== END 2025-05-21 18:03 | disposition home or self-care (01) ==
LOC: ER 14:31
DX: J98.4 Other disorders of lung (principal); F10.90 Alcohol use, unspecified, uncomplicated; F41.9 Anxiety disorder, unspecified; F32.A Depression, unspecified; Z86.73 Personal history of transient ischemic attack (TIA), and cerebral infarction without residual deficits
CPT/HCPCS: 71045